=== PATIENT | female | born 1990 | race Caucasian/White ===

== ENCOUNTER → 2016-12-24 | Outpatient (CLI) | payer BC ==
[2016-12-24 14:52] VITALS: BP 137/93; PULSE 91; TEMP 98.4; BMI 40.2
--- NOTE | 2016-12-24 16:02 | P.HPBAR ---
Bariatric H&P - History & Physicial H&P Date: 12/24/16 History & Physicial: Visit/CC: initial visit after 8 years Patient initial contact: Initial weight: Initial weight in pounds: Height: 5 ft 4 in Initial BMI: Last weight: Current weight: 106.367 kg Current weight in pounds: 234.50 Current BMI: 40.2 [place] body weight (based on NIH guidelines): 54.431 kg Excess body weight loss: The patient is a 26 year-old F who presents for Bariatric Assessment. Patient presents today for lab band follow up. She has not been seen several years. She is which then a fill performed. Past Medical History Past Medical History: GERD/Reflux Additional Past Medical History / Comment(s): narcolepsy overactive bladder History of Any Multi-Drug Resistant Organisms: None Reported Past Surgical History: Bariatric Surgery, Cholecystectomy, Tonsillectomy Additional Past Surgical History / Comment(s): gastric band 2009 panniculectomy 2010 Past Anesthesia/Blood Transfusion Reactions: No Reported Reaction Past Psychological History: Anxiety Smoking Status: Never smoker Past Alcohol Use History: None Reported Past Drug Use History: None Reported Surgical - Exam Vital Signs Temp Pulse BP 98.4 F 91 137/93 12/24/16 14:40 12/24/16 14:40 12/24/16 14:40 - General well developed, no distress - Eyes PERRL - ENT normal pinna - Abdomen Abdomen: soft, non tender Bariatric Assessment & Plan Plan: 0.3 mL added to her band. She is able to water without difficulty. She'll follow-up in one month. Bariatric Checklist Checklist: Plan: Checklist: EGD: 1. Hiatal hernia: 2. H. Pylori: HgbA1c: Vitamin D: Smoking: Never smoker Primary care physician referral: dr underwood Psychiatry clearance: Cardiology clearance: Sleep study: Diet journal: VTE risk score: VTE risk level: Rehab needs at discharge:
== END | disposition home or self-care (01) ==
LOC: BARWHC3 13:44
PROVIDERS: ATTEND Surgery
DX: Z48.815 Encounter for surgical aftercare following surgery on the digestive system (principal); Z98.84 Bariatric surgery status; Z68.41 Body mass index [BMI] 40.0-44.9, adult
CPT/HCPCS: 99202

== ENCOUNTER → 2017-02-04 | Outpatient (CLI) | payer BC ==
[2017-02-04 13:50] VITALS: BP 139/93; PULSE 88; TEMP 98.1; BMI 39.2
--- NOTE | 2017-02-04 14:59 | P.HPBAR ---
Bariatric H&P - History & Physicial H&P Date: 02/04/17 History & Physicial: Visit/CC: Band Adj Patient initial contact: Initial weight: Initial weight in pounds: Height: 5 ft 4 in Initial BMI: Last weight: Current weight: 103.51 kg Current weight in pounds: 228.20 Current BMI: 39.2 [place] body weight (based on NIH guidelines): 54.431 kg Excess body weight loss: The patient is a 26 year-old F who presents for Bariatric Assessment. The patient presents today for LAP-BAND adjustment. She states that she hasn't a cough. She is requesting fluid removed from her band. Past Medical History Past Medical History: GERD/Reflux Additional Past Medical History / Comment(s): narcolepsy overactive bladder History of Any Multi-Drug Resistant Organisms: None Reported Past Surgical History: Bariatric Surgery, Cholecystectomy, Tonsillectomy Additional Past Surgical History / Comment(s): gastric band 2009 panniculectomy 2010 Past Anesthesia/Blood Transfusion Reactions: No Reported Reaction Past Psychological History: Anxiety Smoking Status: Never smoker Past Alcohol Use History: None Reported Past Drug Use History: None Reported Surgical - Exam Vital Signs Temp Pulse BP 98.1 F 88 139/93 02/04/17 13:46 02/04/17 13:46 02/04/17 13:46 - General well developed, no distress - Eyes PERRL - Abdomen Abdomen: soft, non tender Bariatric Assessment & Plan Plan: His LAP-BAND was adjusted. She had 0.2 mL remove her band. She currently is 4.8 mL in the band. She'll follow-up in one month. Bariatric Checklist Checklist: Plan: Checklist: EGD: 1. Hiatal hernia: 2. H. Pylori: HgbA1c: Vitamin D: Smoking: Never smoker Primary care physician referral: dr underwood Psychiatry clearance: Cardiology clearance: Sleep study: Diet journal: VTE risk score: VTE risk level: Rehab needs at discharge:
== END | disposition home or self-care (01) ==
LOC: BARWHC3 12:35
PROVIDERS: ATTEND Surgery
DX: Z09 Encounter for follow-up examination after completed treatment for conditions other than malignant neoplasm (principal); K21.9 Gastro-esophageal reflux disease without esophagitis; F41.9 Anxiety disorder, unspecified; Z98.84 Bariatric surgery status
CPT/HCPCS: 99212